=== PATIENT | female | born 2000 | race Caucasian/White ===

== ENCOUNTER 2023-11-08 08:17 | Outpatient (AMB) | payer OTHER, SELFPAY ==
[2023-11-08 12:06] VITALS: BP 106/71; PULSE 71; TEMP 37.1; O2SAT 99; BMI 18.5
--- NOTE | 2023-11-08 12:06 | MHC.OFFWIV ---
Intake Vital Signs 11/08/23 12:06 Height 5 ft 4 in Weight 107 lb 8 oz BMI 18.5 BP 106/71 Blood Pressure Location Lt brachial Position Sitting Pulse 71 Pulse Source Pulse Oximeter Temp 98.8 F Temp Source Oral Pulse Oximetry (%) 99 Oxygen Delivery Method Room Air Intake Visit Reasons: ear pain Intake Note: Patient is here with right ear pain for a few days, no discharge. Allergies Seasonal Allergies Allergy (Mild, Verified 11/08/23 12:32) Itchy, watery, eyes, sneezing. Medication List - Last Reconciled 11/08/23 by TYREE Lennon No Known Home Meds Do you need a note to return to daycare/school/sports/work: No HPI HPI Comments History of Present Illness Details here w ear pain right started tuesday described as irritated felt like wax at first at work yesterday it got worse hurts to touch cannot sleep on the side denies being sick prior to onset, travel, exposure to water, no ear buds/phones hearing is normal out of right ear NSAIDS + relief Admits to picking at wax in this ear a few days ago prior to the onset of her symptoms She denies any drainage from the ear Review of Systems Const All systems reviewed & are unremarkable except as noted in HPI and below Physical Exam Vital Signs: Last Vital Signs Temp 98.8 F 11/08/23 12:06 Pulse 71 11/08/23 12:06 BP 106/71 11/08/23 12:06 Pulse Ox 99 11/08/23 12:06 Oxygen Delivery Method Room Air 11/08/23 12:06 BMI result Body Mass Index 18.5 Const Other: Awake alert NAD Sclera and conjunctiva clear bilat Cerumen impaction bilat unable to see TM, EAC on right positive erythema and scabs consistent with a scratch or trauma to the ear canal, pain with tragus and auricle manipulation, no drainage MMM, pharynx WNL RRR LS CTAB Assessment & Plan Assessment & Plan (1) Otitis externa of right ear: Code(s): H60.91 - Unspecified otitis externa, right ear Qualifiers: Otitis externa type: noninfectious Noninfectious otitis externa type: other type Chronicity: acute Qualified Code(s): H60.591 - Other noninfective acute otitis externa, right ear Plan: Caused from trauma. Treat with antibiotic eardrops with a mild steroid to help the pain. Okay to continue [id number] pain relief medications as needed (2) Impacted cerumen, bilateral: Code(s): H61.23 - Impacted cerumen, bilateral Plan: Has Debrox at home. Advised to use for 5 nights and then returned to office for lavage. Advised not to start this until she is feeling better. Advised to give her ears at least a 5 day break in between the course of antibiotic eardrops and the use of Debrox. Medications: New ciprofloxacin-hydrocortisone 0.2-1 % (Cipro HC) 3 drps otic (ears) BID 10 mL 0RF 7 days Coding Level of Care Code Est Pt Level 3 (64422) Diagnoses Other noninfective acute otitis externa of right ear H60.591 Otitis externa type: noninfectious Noninfectious otitis externa type: other type Chronicity: acute Impacted cerumen, bilateral H61.23
== END 2023-11-08 12:39 | disposition home or self-care (01) ==
PROVIDERS: Visit Provider Nurse Practitioner Family
DX: H60.591 Other noninfective acute otitis externa, right ear (principal); H61.23 Impacted cerumen, bilateral
CPT/HCPCS: 99213

== ENCOUNTER 2023-12-28 10:12 | Outpatient (AMB) | payer OTHER, SELFPAY ==
[2023-12-28 10:16] VITALS: BP 110/70; PULSE 108; TEMP 36.6; O2SAT 97; BMI 18.0
--- NOTE | 2023-12-28 10:16 | AM.OFFWIN_ITS ---
Intake Vital Signs 12/28/23 10:16 Height 5 ft 4 in Weight 105 lb BMI 18.0 BP 110/70 Blood Pressure Location Lt brachial Position Sitting Pulse 108 H Pulse Source Pulse Oximeter Temp 97.9 F Temp Source Temporal Artery Scan Pulse Oximetry (%) 97 Oxygen Delivery Method Room Air Intake Visit Reasons: EP ear infection rt Intake Note: pt is here today for infection started 4 days ago Patient Tobacco Use Status: Never used Tobacco Allergies Seasonal Allergies Allergy (Mild, Verified 12/28/23 10:29) Itchy, watery, eyes, sneezing. Do you need a note to return to daycare/school/sports/work: No HPI EP ear infection rt HPI Details 23 [facility] and drainage for the last several days. Reports clear fluid draining from ear, particularly at night. Denies any fever, chills, or other sick symptoms. Was recently on vacation however she states she did not go under water. [facility] Social History Patient Tobacco Use Status: Never used Tobacco Review of Systems Const All systems reviewed & are unremarkable except as noted in HPI and below Physical Exam Const General: cooperative, healthy appearing and no acute distress HEENT Head: Yes normal to inspection Ears: TM normal on the left, Abnormal EAC present excessive cerumen on the left and otic discharge clear on the right and TM abnormal wth effusion purulent on the left and erythematous on the left General nose exam: Normal external nose present Face and sinus: Yes normal facial exam Neck Neck: Yes no lymphadenopathy Resp Effort & Inspection: normal respiratory effort Psych Appearance: grossly normal Mental Status: mental status grossly normal Speech and movement: Normal speech and movement present Assessment & Plan Assessment & Plan (1) Right otitis media with effusion: Code(s): H65.91 - Unspecified nonsuppurative otitis media, right ear Plan: Augmentin BID 7 days for right OM with effusion. Reviewed indications, use, possible s/e of medication. Advised continued use of Tylenol for any ongoing discomfort in that ear. If she does not improve with treatment, she should return to the clinic or PCP for further evaluation. Patient verbalizes understanding and agrees to plan. Medications: New amoxicillin-pot clavulanate 875-125 mg 1 tab PO BID 7 days 14 tabs 0RF H65.91 - Unspecified nonsuppurative otitis media, right ear Coding Level of Care Code Est Pt Level 4 (07979) Diagnoses Right otitis media with effusion H65.91
== END 2023-12-28 10:57 | disposition home or self-care (01) ==
PROVIDERS: Visit Provider Nurse Practitioner Family
DX: H65.91 Unspecified nonsuppurative otitis media, right ear (principal)
CPT/HCPCS: 99214

== ENCOUNTER 2024-04-05 11:19 | Outpatient (REF) | payer OTHER, SELFPAY ==
--- NOTE | 2024-04-05 11:25 | ECG_ITS ---
Test Reason : dizziness, lightheaded Blood Pressure : / mmHG Vent. Rate : 078 BPM Atrial Rate : 078 BPM P-R Int : 154 ms QRS Dur : 086 ms QT Int : 378 ms P-R-T Axes : 063 051 037 degrees QTc Int : 430 ms Normal sinus rhythm Normal ECG No previous ECGs available Referred By: Nayely Maradiaga Electronically Signed By:MARIBEL KNIGHT
[2024-04-05 11:52] LABS: MANUAL DIFF FLAG NO
[2024-04-05 12:44] LABS: Estimated Average Glucose 77 mg/dL; Hemoglobin A1c % 4.3 % (<6.0)
[2024-04-05 12:53] LABS: Basophils Percent Auto 0.4 % (0-2); Eosinophils Absolute Auto 0.1 X10*3/uL (0.0-0.4); Eosinophils Percent Auto 0.9 % (0-4); Hematocrit 39.2 % (37.0-47.0); Hemoglobin 13.3 g/dl (12.0-16.0); Imm Gran Abs Auto 0.02 X10*3/uL (0.00-0.03); Imm Gran Pct Auto 0.3 % (0.0-0.4); Lymphocytes Absolute Auto 2.1 X10*3/uL (1.2-4.9); Lymphocytes Percent Auto 30.4 % (20-40); Mean Corpuscular HGB Conc 33.9 g/dl (31.0-35.0); Mean Corpuscular Hemoglobin 31.1 pg (27.0-33.0); Mean Corpuscular Volume 91.6 fL (80.0-98.0); Mean Platelet Volume 10.8 fL (9.4-12.3); Monocytes Absolute Auto 0.4 X10*3/uL (0.1-1.2); Monocytes Percent Auto 5.6 % (2-11); Neutrophils Absolute Auto 4.3 x10*3/uL (2.0-8.3); Neutrophils Percent Auto 62.4 % (45-73); Platelet Count 243 X10*3/uL (160-400); Red Blood Count 4.28 X10*6/uL (4.20-5.50); Red Cell Distribution Width 12.3 % (11.0-16.0); White Blood Count 6.9 X10*3/uL (4.8-10.8)
[2024-04-05 13:22] LABS: Alanine Aminotransferase 10 U/L (0-31); Alkaline Phosphatase 50 U/L (39-117); Anion Gap 14 (12-20); Aspartate Amino Transferase 23 U/L (5-31); Bilirubin Total 0.4 mg/dL (0.0-1.0); Blood Urea Nitrogen 7 mg/dL (9-16); Carbon Dioxide 18 mmol/L (22-29); Chloride 109 mmol/L (96-108); Estimated Glomerular Filt Rate > 60; Glucose Random 83 mg/dL (60-115); Sodium 137 mmol/L (135-145); Total Protein 7.2 g/dL (6.5-8.0); Vitamin B12 207 pg/mL (200-900)
[2024-04-05 13:24] LABS: HCG Quantitative < 2 mIU/mL; Thyroid Stimulating Hormone 0.64 uIU/mL (0.32-4.0)
== END 2024-04-05 11:20 | disposition home or self-care (01) ==
LOC: HO.LAB 11:19
PROVIDERS: Visit Provider Social Worker
DX: R42 Dizziness and giddiness (principal); Z13.1 Encounter for screening for diabetes mellitus
CPT/HCPCS: 36415; 80053; 82607; 83036; 84443; 84702; 85025; 93005

== ENCOUNTER → 2024-04-05 11:25 | Outpatient (BNV) | payer OTHER, SELFPAY | PROVIDERS: Visit Provider Internal Medicine | DX: R42 Dizziness and giddiness (principal) | CPT/HCPCS: 93010 ==

== ENCOUNTER 2024-09-11 08:42 | Outpatient (REF) | payer OTHER, SELFPAY ==
--- NOTE | ~2024-09-11 | US_ITS ---
EXAMINATION: US DIAGNOSTIC ULTRASOUND BREAST, RIGHT CLINICAL INFORMATION: 24-year-old female Right breast palpable mass at 5:00.. COMPARISON: Comparison is made with relevant prior imaging. TECHNIQUE: Ultrasound of the breast is performed with real-time roman scale imaging and color Doppler. FINDINGS: Targeted color Doppler ultrasound scanning in the area the patient's palpable lump at 5:00 1 cm from the nipple demonstrates a minimally complicated cyst with mobile internal debris measuring 12 x 9 x 11 mm. There is no internal vascular flow. Results are discussed with the patient at time of visit. US/US breast RT limited mamm only IMPRESSION: Family complicated cysts in the area the patient's palpable lump at 5:00. This area is amenable to aspiration if the patient is having symptoms of pain. Clinical evaluation and follow-up recommended. Benign. ASSESSMENT: BI-RADS 2: Benign RECOMMENDATION: Clinical evaluation and follow-up recommended. This patient's information was entered into a reminder system with a target due date for their next mammogram. Electronically signed by: Lizabeth Rhodes DO 09/11/2024 09:36 AM FARNAZ
== END 2024-09-11 08:43 | disposition home or self-care (01) ==
LOC: HO.MAMMO 08:42
PROVIDERS: Visit Provider Obstetrics & Gynecology
DX: N63.41 Unspecified lump in right breast, subareolar (principal)
CPT/HCPCS: 76642

== ENCOUNTER → 2024-09-11 08:45 | Outpatient (BNV) | payer OTHER, SELFPAY | PROVIDERS: Visit Provider Internal Medicine | DX: N63.14 Unspecified lump in the right breast, lower inner quadrant (principal) | CPT/HCPCS: 76642 ==